=== PATIENT | male | born 1980 | race Caucasian/White ===

== ENCOUNTER 2023-08-24 07:12 | Emergency (ER) | payer MEDICAID, SELFPAY ==
[2023-08-24 07:21] VITALS: BP 130/88; PULSE 83; RESP 18; TEMP 36.8; O2SAT 98; BMI 21.6
--- NOTE | 2023-08-24 07:45 | ED_ITS ---
HPI - Back Pain/Injury General: Chief Complaint: Back Pain/Injury Stated Complaint: lower back pain/had deflated gallbladder diagnosed Time Seen by Provider: 08/24/23 07:14 Source: patient Mode of arrival: ambulatory History of Present Illness: 42-year-old male presents emergency room with back pain at times radiates down his left leg no saddle paresthesias no urinary retention or fecal incontinence. No recent trauma no past history of previous surgery. No dysuria urgency or frequency. MD elicited complaint: back pain Pertinent past history: prior back pain Onset (ago): day(s) Timing: constant Severity: moderate Similar Symptoms Previously: Yes Quality: spasming Location: lumbar spine Radiation: left upper leg Exacerbating factors: movement, sitting upright, walking and lifting Relieving factors: supine Associated symptoms: Deny abdominal pain, arthralgias, chills, change in bowel habits, difficulty walking, dysuria, fatigue, fecal incontinence, fever(s), hematuria, myalgias, nausea, numbness, syncope, tingling/numbness/burning, urinary frequency, urinary urgency, vomiting or weakness Review of Systems Const: Denies: fever(s), chills or fatigue Card: Denies: chest pain or syncope Resp: Denies: dyspnea GI: Denies: abdominal pain, nausea, vomiting, fecal incontinence or change in bowel habits : Denies: dysuria, urinary frequency, urinary urgency or hematuria Musc: Denies: neck pain or back pain Skin/Breast: Denies: rash Neuro: Denies: difficulty walking Physical Exam Const: GENERAL APPEARANCE: cooperative and comfortable ORIENTATION/CONSCIOUSNESS: Yes awake, Yes oriented to person, Yes oriented to place and Yes oriented to time HENMT: COMMON NORMALS: normocephalic, atraumatic and hearing grossly normal bilaterally HEAD & SCALP: normocephalic and atraumatic Resp: COMMON NORMALS: normal respiratory effort, No retractions, No use of accessory muscles and clear to auscultation bilaterally AUSCULTATION: clear to auscultation bilaterally Cardio: COMMON NORMALS: regular rate, regular rhythm and No murmurs present (Cardio) RATE: regular rate RHYTHM: regular rhythm GI: COMMON NORMALS: Soft to palpation and No hepatosplenomegaly present AUSCULTATION: Yes normoactive bowel sounds PALPATION: Yes Soft to palpation, No Tenderness to palpation present (GI), No Guarding due to palpation present (GI) and Yes No hepatosplenomegaly present : COMMON NORMALS: Yes no CVA tenderness BLADDER/KIDNEY EXAM: Yes no CVA tenderness Back/Pelvis: COMMON NORMALS: no CVA tenderness Extremity: COMMON NORMALS: normal to inspection, capillary refill normal, no clubbing, cyanosis or edema, no calf tenderness and no pedal edema Neuro: SENSORIUM/ORIENTATION: Yes oriented to person, Yes oriented to place and Yes oriented to time OTHER: Straight leg raising is negative sensation lower extremities normal Skin: COMMON NORMALS: no rashes or lesions noted GENERAL SKIN EXAM: no rashes or lesions noted Course Vital Signs: Vital signs: Vital Signs Temperature 98.2 F 08/24/23 07:21 Pulse Rate 75 08/24/23 08:53 Respiratory Rate 17 08/24/23 08:53 Blood Pressure 129/98 08/24/23 08:53 Pulse Oximetry 99 08/24/23 08:53 Oxygen Delivery Me thod Room Air 08/24/23 08:53 MDM - Back Pain/Injury Medical Decision Making No red flag symptoms. Discomfort improved with medications given discharged home with prednisone taper diclofenac tizanidine to use as needed follow-up with primary care. Differential Diagnosis Likely lumbar radiculopathy, sciatica, strain of lumbar region, renal colic and pyelonephritis Labs 08/24/23 07:35 08/24/23 07:35 Laboratory Results WBC 7.08 10^3/uL (3.29-11.43) 08/24/23 07:35 RBC 4.63 10^6/uL (3.85-5.65) 08/24/23 07:35 Hgb 14.50 g/dL (11.27-16.99) 08/24/23 07:35 Hct 44.1 % (37-53) 08/24/23 07:35 MCV 95.2 fl (82-101) 08/24/23 07:35 MCH 31.3 pg (27-33) 08/24/23 07:35 MCHC 32.9 g/dL (30-55) 08/24/23 07:35 RDW 12.3 % (12.1-15.1) 08/24/23 07:35 Plt Count 285 10^3/cmm (157-399) 08/24/23 07:35 MPV 10.1 fL (7.4-10.4) 08/24/23 07:35 Neut % (Auto) 65.0 % 08/24/23 07:35 Lymph % (Auto) 24.0 % 08/24/23 07:35 Hyde % (Auto) 6.9 % 08/24/23 07:35 Eos % (Auto) 3.5 % 08/24/23 07:35 Baso % (Auto) 0.3 % 08/24/23 07:35 Neut # (Auto) 4.60 10^3/uL (1.8-7.7) 08/24/23 07:35 Lymph # (Auto) 1.7 10^3/uL (0.8-4.8) 08/24/23 07:35 Hyde # (Auto) 0.5 10^3/uL (0.2-0.9) 08/24/23 07:35 Eos # (Auto) 0.3 10^3/uL (0.0-0.8) 08/24/23 07:35 Baso # (Auto) 0.0 10^3/uL (0.0-0.1) 08/24/23 07:35 Nucleated RBC % (auto) 0 % 08/24/23 07:35 Nucleated RBCs # 0.0 /100WBC 08/24/23 07:35 Sodium 141 mmol/L (136-145) 08/24/23 07:35 Potassium 4.0 mmol/L (3.5-5.1) 08/24/23 07:35 Chloride 101 mmol/L (98-107) 08/24/23 07:35 Carbon Dioxide 31 mmol/L (22-29) H 08/24/23 07:35 Anion Gap 13.0 (5-19) 08/24/23 07:35 BUN 19 mg/dL (6-20) 08/24/23 07:35 Creatinine 0.9 mg/dL (0.7-1.2) 08/24/23 07:35 GFR Calculation 92.1 mL/min (90-130) 08/24/23 07:35 Glucose 88 mg/dL (65-115) 08/24/23 07:35 Calculated Osmolality 294 mOsm/kg (285-295) 08/24/23 07:35 Calcium 9.5 mg/dL (8.5-10.5) 08/24/23 07:35 Total Bilirubin 0.2 mg/dL (0.15-1.2) 08/24/23 07:35 AST 15 U/L (0-40) 08/24/23 07:35 ALT 10 U/L (0-41) 08/24/23 07:35 Alkaline Phosphatase 109 U/L (40-130) 08/24/23 07:35 Total Protein 7.2 g/dL (6.6-8.7) 08/24/23 07:35 Albumin 4.3 g/dL (3.5-5.2) 08/24/23 07:35 Globulin 2.9 g/dL (1.3-4.6) 08/24/23 07:35 Lipase 19 U/L (13-60) 08/24/23 07:35 No radiology studies performed this visit Discharge Plan Discharge Patient Disposition: Home Clinical Impression: Lumbar radiculopathy Condition: Stable Prescriptions: New tizanidine 4 mg tablet 4 mg PO Q6H PRN (Reason: muscle spasticity) Qty: 20 0RF Rx Instructions: do not exceed 3 doses per 24 hrs prednisone 20 mg tablet 20 mg PO TID Qty: 15 0RF Rx Instructions: 1 p.o. 3 times daily x3 days, 1 p.o. twice daily x2 days, 1 p.o. daily x2 da ys diclofenac sodium 75 mg tablet,delayed release (DR/EC) 75 mg PO Q12H PRN (Reason: pain) Qty: 20 0RF No Action Biktarvy 50-200-25 mg Tablet 1 tab PO DAILY Discharge Orders: Discharge ED (Routine); Ordered 08/24/23 Ordered By: Paul Sullivan Referrals: OUT OF AREA PROVIDERS, [Primary Care Provider] - Discharge Diet: Usual diet Discharge Activity: Increase activity as tolerated Patient Instructions: Lumbar Radiculopathy (ED), Opioid Safety, Pain Management Coding Level of Care Code ED Physical Medicine Specialist for Luis Fernando Lamar
[2023-08-24 07:48] LABS: Basophils % 0.3 %; Eosinophils # 0.3 10^3/uL (0.0-0.8); Eosinophils % 3.5 %; Hematocrit 44.1 % (37-53); Lymphocytes # 1.7 10^3/uL (0.8-4.8); Mean Corpuscular HGB Conc 32.9 g/dL (30-55); Mean Corpuscular Hemoglobin 31.3 pg (27-33); Mean Corpuscular Volume 95.2 fl (82-101); Mean Platelet Volume 10.1 fL (7.4-10.4); Monocytes # 0.5 10^3/uL (0.2-0.9); Monocytes % 6.9 %; Nucleated Red Blood Cells % 0 %; Platelet Count 285 10^3/cmm (157-399); Red Blood Count 4.63 10^6/uL (3.85-5.65); Red Cell Distribution Width 12.3 % (12.1-15.1); White Blood Count 7.08 10^3/uL (3.29-11.43)
[2023-08-24] MEDS: orphenadrine 30 mg/mL Inj 2 mL 60 MG IM (08:00)
[2023-08-24] MEDS: dexamethasone 10 mg/mL INJ IM (08:01)
[2023-08-24] MEDS: ketorolac 30 mg/mL INJ 60 MG IM (08:02)
[2023-08-24 08:07] LABS: Alanine Aminotransferase 10 U/L (0-41); Albumin Level 4.3 g/dL (3.5-5.2); Alkaline Phosphatase 109 U/L (40-130); Aspartate Amino Transferase 15 U/L (0-40); Blood Urea Nitrogen 19 mg/dL (6-20); Calcium 9.5 mg/dL (8.5-10.5); Carbon Dioxide 31 mmol/L (22-29); Chloride 101 mmol/L (98-107); Globulin 2.9 g/dL (1.3-4.6); Glomerular Filtration Rate 92.1 mL/min (90-130); Glucose 88 mg/dL (65-115); Lipase 19 U/L (13-60); Osmolality Calculated 294 mOsm/kg (285-295); Sodium 141 mmol/L (136-145); Total Bilirubin 0.2 mg/dL (0.15-1.2); Total Protein 7.2 g/dL (6.6-8.7)
[2023-08-24 08:53] VITALS: BP 129/98; PULSE 75; RESP 17; O2SAT 99
== END 2023-08-24 08:59 | disposition home or self-care (01) ==
PROVIDERS: Emergency Provider Family Medicine
DX: M54.16 Radiculopathy, lumbar region (principal)
CPT/HCPCS: 80053; 83690; 85025; 96372; 99284; J1100; J1885; J2360